=== PATIENT | male | born 1975 | race Caucasian/White ===

== ENCOUNTER 2019-01-17 16:11 | Emergency (ER) | payer MEDICARE ==
--- NOTE | 2019-01-17 16:34 | Emergency Department Record ---
History of Present Illness - General Chief Complaint: Headache Migraine Stated Complaint: HEADACHE,LT KNEE KPAIN Time Seen by Provider: 01/17/19 16:27 Source: Patient Mode of Arrival: Ambulatory Limitations: No limitations - History of Present Illness Initial Comments: 43 yo male presents with congestion, nasal drainage, and frontal forehead pressure. The drainage is clear. No sore throat. He does have a new cough as well. No swollen glands. No chest or abdominal pain. The pressure is isolated to the facial area and frontal forehead. It was very gradual onset. No fever or trauma. MD Complaint: Headache -: Hour(s) (4) Onset Description: Sudden Location: Diffuse Severity: Moderate Severity scale (1-10): 8 Quality: Aching Consistency: Constant Improves With: Nothing Worsens With: None Context: Recent URI Associated Symptoms: Other Other Symptoms: Other Treatments Prior to Arrival: Ibuprofen Treatment Prior to Arrival Comment:: Cesario 0700 and 1400 - Related Data Home Medications Medication Instructions Recorded Confirmed Last Taken Buspirone HCl [Buspar] 5 mg PO BID 01/17/19 01/17/19 Unknown Fluoxetine HCl 20 mg PO BID 01/17/19 01/17/19 Unknown Previous Rx's Medication Instructions Recorded Doxycycline Hyclate 100 mg PO BID #14 cap 01/17/19 Allergies Allergy/AdvReac Type Severity Reaction Status Date / Time bee venom protein (honey bee) Allergy ANAPHYLAXIS Verified 01/17/19 16:25 fluoxetine [From Prozac] Allergy RASH Verified 01/17/19 16:25 latex Allergy RASH Verified 01/17/19 16:25 Penicillins Allergy hard time Verified 01/17/19 16:25 breathing aspirin AdvReac cold sweats Verified 01/17/19 16:25 diphenhydramine AdvReac heart Verified 01/17/19 16:25 [From Benadryl] racing Travel Screening - Travel/Exposure Within Last 30 Days Have you traveled within the last 30 days?: No Review of Systems Constitutional: Denies: Chills, Fever, Malaise, Weakness Eyes: Reports: Other (pressure behind the eyes). Denies: Eye discharge, Eye pain, Photophobia, Vision change ENT: Reports: Congestion. Denies: Ear pain, Throat pain Respiratory: Reports: Cough. Denies: Dyspnea, Hemoptysis, Stridor, Wheezes Cardiovascular: Denies: Chest pain, Palpitations, Syncope Endocrine: Denies: Fatigue Gastrointestinal: Denies: Abdominal pain, Diarrhea, Nausea, Vomiting Genitourinary: Denies: Dysuria, Frequency, Hematuria Musculoskeletal: Reports: Arthralgia (one year of left knee pain) Skin: Denies: Bruising, Change in color, Rash Neurological: Reports: Headache. Denies: Numbness, Weakness Psychiatric: Denies: Anxiety Hematological/Lymphatic: Denies: Easy bleeding, Easy bruising, Swollen glands Physical Exam - General General Appearance: Alert, Oriented x3, Cooperative, No acute distress Limitations: No limitations - Head Head exam: Atraumatic, Normocephalic, Normal inspection - Eye Eye exam: Normal appearance, PERRL, EOMI, Periorbital tenderness. negative: Conjunctival injection, Nystagmus, Periorbital swelling, Scleral icterus Pupils: Normal accommodation. negative: Irregular, Unequal - ENT ENT exam: Normal exam, Mucous membranes moist, Normal orophraynx, TM's normal bilaterally. negative: Mucous membranes dry Ear exam: Normal external inspection. negative: Auricular hematoma, Auricular trauma, External canal tenderness Nasal Exam: Discharge Mouth exam: Normal external inspection Teeth exam: Normal inspection Throat exam: Normal inspection. negative: Tonsillar erythema, Tonsillomegaly, Tonsillar exudate, R peritonsillar mass, L peritonsillar mass - Neck Neck exam: Normal inspection, Full ROM. negative: Tenderness - Respiratory Respiratory exam: Normal lung sounds bilaterally. negative: Respiratory distress - Cardiovascular Cardiovascular Exam: Regular rate, Normal rhythm, Normal heart sounds - GI/Abdominal GI/Abdominal exam: Soft. negative: Tenderness - Rectal Rectal exam: Deferred - exam: Deferred - Extremities Extremities exam: Normal inspection, Full ROM, Tenderness (tender knee medial). negative: Joint swelling - Back Back exam: Denies: CVA tenderness (R), CVA tenderness (L) - Neurological Neurological exam: Alert, Normal gait, Oriented X3, Reflexes normal - Psychiatric Psychiatric exam: Normal affect, Normal mood - Skin Skin exam: Dry, Intact, Normal color, Warm Course - Reevaluation(s) Reevaluation #1: The knee XR was reviewed No acute fracture or dislocation. Likely small osteochondroma. The patient states he has been told about this in the past 01/17/19 17:01 Disposition Disposition: Discharge Clinical Impression: Upper respiratory infection, Headache, Arthralgia, Sinusitis Disposition: Home, Self-Care Condition: (1) Good Instructions: Sinusitis (ED), Acute Headache (ED), Knee Pain (ED) Additional Instructions: Call your doctor for the next available follow up appointment Return to the ER for a recheck if worse, any new concerns or questions Take the prescriptions provided as directed Review this ER visit and the tests performed with your family doctor Prescriptions: Doxycycline Hyclate 100 mg PO BID #14 cap Forms: Patient Portal Access Time of Disposition: 17:01 Quality - Quality Measures Quality Measures: N/A - Blood Pressure Screening Does Patient Have Any of the Following: No Blood Pressure Classification: Normal BP Reading Systolic Measurement: 108 Diastolic Measurement: 78 Screening for High Blood Pressure: < Normal BP, F/U Not Required > [G8783]
[2019-01-17] MEDS ORDERED: CEPHALEXIN 500 MG CAPSULE PO STA (16:58)
[2019-01-17] MEDS ORDERED: DOXYCYCLINE HYCLATE 100 MG CAPSULE PO SCH (22:00)
== END 2019-01-17 17:11 | disposition home or self-care (01) ==
LOC: ER 16:11
DX: J01.90 Acute sinusitis, unspecified (principal); J06.9 Acute upper respiratory infection, unspecified; R51 Headache; M25.562 Pain in left knee
CPT/HCPCS: 99283